=== PATIENT | female | born 1950 | race African-American/Black ===

== ENCOUNTER 2017-01-06 10:22 | Emergency (ER) | payer OTHER ==
--- NOTE | ~2017-01-06 | CR63 ---
[facility] A Service of [facility] RADIOLOGY TEXT RESULTS PATIENT: MARK RENTERIA LOCATION: CFTX : 50 UNIT #: [id number] AGE: [address]: Nicki Norwood APRN SEX: F ORDER DR: [id number] [facility] [address] [place], [place] [address] [id number] E MR#: [id number] Acc #: [id number] NAME: MARK RENTERIA : 1950 SEX: F STUDY DATE/TIME: 01/06/2017 10:45 UNIT: [facility] ROOM: STUDY DESCRIPTION: CR Chest 2 View Attending Physician: Nicki Norwood A.P.R.N. Ordering Physician: Guzman Browning M.D. Primary Care Physician: Primary Care Physician No MEDICAL IMAGING REPORT This report is preliminary unless electronic signature is present EXAM Chest x-ray 01/06/2017 INDICATION Fell in a hole outside her house 4 days ago. Chest and left shoulder pain. History of smoking. FINDINGS 2 views of the chest are compared with 12/22/2015. Cardiac and mediastinal contours are normal. There is atherosclerotic disease in the aorta. The lungs are clear. No pneumothorax is seen. There are no displaced fractures. IMPRESSION No active disease. Dictated by... Benny Zhou Jr., M.D. THIS IS AN ELECTRONICALLY VERIFIED REPORT Benny Zhou Jr., M.D. at 01/06/2017 6:33 PM MANDY/kindra TD: 01/06/2017 13:19 JOB #: [id number] MEDICAL IMAGING REPORT Page 1 of 1 COPY
--- NOTE | ~2017-01-06 | CR150 ---
[facility] A Service of [facility] RADIOLOGY TEXT RESULTS PATIENT: MARK RENTERIA LOCATION: [place] : 50 UNIT #: [id number] AGE: [address]: Nicki Norwood APRN SEX: F ORDER DR: [id number] [facility] [address] [place], [place] [address] [id number] E MR#: [id number] Acc #: [id number] NAME: MARK RENTERIA : 1950 SEX: F STUDY DATE/TIME: 01/06/2017 10:46 UNIT: [place] ROOM: STUDY DESCRIPTION: CR Hip Min 2 Views Lt Attending Physician: Nicki Norwood A.P.R.N. Ordering Physician: Ed Doctor [id number] [facility] Primary Care Physician: No Primary Care Physician MEDICAL IMAGING REPORT This report is preliminary unless electronic signature is present EXAM Left hip 2 views 01/06/2017 10:46 hours HISTORY A 66-year-old woman who fell 4 days ago in a hole outside of her house. Left hip pain. COMPARISON Pelvis and right hip film 02/27/2014 FINDINGS AP pelvis and frog lateral view left hip demonstrate overall normal bone density. There is mild bilateral hip joint space loss similar to prior exam. There is no fracture or dislocation. Pelvis is intact. IMPRESSION Negative pelvis and left hip. No hip fracture seen. Dictated by... Cristela Lentz M.D. THIS IS AN ELECTRONICALLY VERIFIED REPORT Cristela Lentz M.D. at 01/06/2017 2:29 PM Tom TD: 01/06/2017 13:11 JOB #: [id number] MEDICAL IMAGING REPORT Page 1 of 1 COPY
--- NOTE | ~2017-01-06 | CT127 ---
[facility] A Service of [facility] RADIOLOGY TEXT RESULTS PATIENT: MARK RENTERIA LOCATION: [place] : 50 UNIT #: [id number] AGE: [address]: Nicki Norwood APRN SEX: F ORDER DR: [id number] [facility] [address] [place], [place] [address] [id number] E MR#: [id number] Acc #: [id number] NAME: MARK RENTERIA : 1950 SEX: F STUDY DATE/TIME: 01/06/2017 12:09 UNIT: CFTX ROOM: STUDY DESCRIPTION: CT Upper Ext Lt Wo Cont Attending Physician: Nicki Norwood A.P.R.N. Ordering Physician: Reji Hahn M.D. Primary Care Physician: No Primary Care Physician MEDICAL IMAGING REPORT This report is preliminary unless electronic signature is present EXAM CT left shoulder, 01/06. INDICATION History of fall 3 days ago with persistent shoulder pain. Abnormal radiographs today showing lucency in the acromion which could reflect a fracture. CT scan was recommended. TECHNIQUE Axial images were obtained through the left shoulder without contrast. Multiplanar reformats were obtained. This CT exam was performed with one or more of the following radiation dose reduction techniques: automatic exposure control, adjustment of mA and/or kV according to patient size, and iterative reconstruction. COMPARISON Comparison is made with radiographs from the same day. FINDINGS No fracture or dislocation is seen. There is no AC joint separation. Lucency in the acromion seen on the prior radiographs is presumably artifact on those films as the acromion appears normal on this exam. No definite shoulder joint effusion. Incidental note is made of emphysema in the left lung. IMPRESSION No acute fracture or malalignment is seen. Findings on the earlier radiographs are compatible with artifact. Dictated by... [facility] A Service [facility] RADIOLOGY TEXT RESULTS PATIENT: MARK RENTERIA LOCATION: [place] : 50 UNIT #: [id number] AGE: [address]: Nicki Norwood APRN SEX: F ORDER DR: Benny Zhou Jr., M.D. THIS IS AN ELECTRONICALLY VERIFIED REPORT Benny Zhou Jr., M.D. at 01/06/2017 6:33 PM MANDY/anabel TD: 01/06/2017 15:27 JOB #: [id number] MEDICAL IMAGING REPORT Page 1 of 1 COPY
--- NOTE | ~2017-01-06 | CR229 ---
[facility] A Service of [facility] RADIOLOGY TEXT RESULTS PATIENT: MARK RENTERIA LOCATION: [facility]FT[facility] : 50 UNIT #: [id number] AGE: [address]: Nicki Norwood APRN SEX: F ORDER DR: [id number] [facility] [address] [place], [place] [address] [id number] E MR#: [id number] Acc #: [id number] NAME: MARK RENTERIA : 1950 SEX: F STUDY DATE/TIME: 01/06/2017 10:47 UNIT: [facility] ROOM: STUDY DESCRIPTION: CR Shoulder Min 2 View Lt Attending Physician: Nicki Norwood A.P.R.N. Ordering Physician: Reji Hahn M.D. Primary Care Physician: No Primary Care Physician MEDICAL IMAGING REPORT This report is preliminary unless electronic signature is present EXAM Left shoulder, 01/06/2017. INDICATIONS Shoulder pain after falling in a hole outside her house 4 days ago. FINDINGS 3 views of the left shoulder were obtained. No AC joint separation is seen. There is no glenohumeral dislocation. There is some lucency in the acromion, which does not have the typical appearance of os acromiale. This could reflect a fracture. CT recommended for follow up. IMPRESSION Lucency in the acromion may reflect a fracture rather than an os acromiale. CT scan recommended for further characterization. There is no AC joint separation or glenohumeral dislocation. Dictated by... Benny Zhou Jr., M.D. THIS IS AN ELECTRONICALLY VERIFIED REPORT Benny Zhou Jr., M.D. at 01/06/2017 6:33 PM MANDY/[place] TD: 01/06/2017 13:23 JOB #: [id number] MEDICAL IMAGING REPORT Page 1 of 1 COPY
[~2017-01-06 10:22] MED LIST: HTN MED; LISINOPRIL PO
== END 2017-01-06 13:11 | disposition home or self-care (01) ==
LOC: CFTX 10:22 → CED 10:22 → CFTX 11:15
DX: S46.012A Strain of muscle(s) and tendon(s) of the rotator cuff of left shoulder, initial encounter (principal); S70.02XA Contusion of left hip, initial encounter; I10 Essential (primary) hypertension; J45.909 Unspecified asthma, uncomplicated; M19.90 Unspecified osteoarthritis, unspecified site; F17.200 Nicotine dependence, unspecified, uncomplicated; W01.0XXA Fall on same level from slipping, tripping and stumbling without subsequent striking against object, initial encounter; Y92.009 Unspecified place in unspecified non-institutional (private) residence as the place of occurrence of the external cause
CPT/HCPCS: 71020; 73030; 73200; 73502; 99284

== ENCOUNTER 2017-04-10 13:06 | Emergency (ER) | payer OTHER ==
[~2017-04-10] VITALS: Ht 157.5 cm; Wt 71.7 kg
== END 2017-04-10 14:05 | disposition home or self-care (01) ==
LOC: CFTX 13:06 → CED 13:06 → CFTX 13:59
DX: M25.512 Pain in left shoulder (principal); I10 Essential (primary) hypertension; J45.909 Unspecified asthma, uncomplicated; F17.210 Nicotine dependence, cigarettes, uncomplicated; Z88.0 Allergy status to penicillin
CPT/HCPCS: 99283; J1885